=== PATIENT | male | born 1960 | race Caucasian/White ===

== ENCOUNTER → 2019-06-09 13:36 | Outpatient (CLI) | payer OTHER, SELFPAY ==
--- NOTE | 2019-06-09 | DI.ECHO.S_ITS ---
[facility]---------[facility] +---------+ : : [address] : : : : [id number] : : : : Phone: [phone] +---------+ Echocardiogram Report + + :Name: MERCED OROZCO Study Date: 06/09/2019 Height: 69 in : :[facility] Exam Location: IS Weight: 135 lb : : Gender: Male BSA: 1.7 m2 : :: 1960 Age: 58 yrs BP: 138/83 mmHg: :Reason For Study: SYNCOPE AND COLLAPSE : : Performed By: Miguelangel Gordon : :Referring: MIRELLA MAS M : + + Interpretation Summary Normal sinus rhythm. Normal LV size, wall thickness, wall motion and LV systolic function. EF is 60-65%. Moderate LA enlargement; otherwise normal chamber sizes. Aortic valve leaflets are normal; there is moderately dilated aortic root and mildly-moderately dilated ascending aorta. As a result there is mild central aortic regurgitation. Otherwise no significant valvular abnormalities. No prior study available for comparison. Procedure: A two-dimensional transthoracic echocardiogram with color flow and Doppler was performed. The study quality was technically good. There is no prior echocardiogram noted for this patient. The patient was in normal sinus rhythm during the exam. Left Ventricle: The left ventricle is normal in size. There is normal left ventricular wall thickness. There is no echo evidence for significant left ventricular outflow tract obstruction. The ejection fraction is estimated to be 60-65%. There are no focal wall motion abnormalities. Diastolic parameters suggest a relaxation abnormality of the left ventricle, consistent with probable normal filling pressures. Right Ventricle: The right ventricle is at the upper limits of normal in size. The right ventricular systolic function is normal. Atria: The left atrium is moderately dilated. Right atrial size is normal. The interatrial septum is intact with no evidence for an atrial septal defect. Mitral Valve: There is a flat closure plane of the the mitral valve leaflets. There is no mitral regurgitation noted. Aortic Valve: The aortic valve is trileaflet. The aortic valve opens well. There is mild aortic regurgitation. Tricuspid Valve: The tricuspid valve is normal in structure and function. There is trace tricuspid regurgitation. The right ventricular systolic pressure is estimated to be at least 19 mmHg based on an estimated right atrial pressure of 3 mm Hg. Pulmonic Valve: The pulmonic valve is normal in structure and function. There is trace pulmonic regurgitation. Great Vessels: The aortic root is moderately dilated. The ascending aorta is mild-moderately enlarged. The pulmonary artery is normal size. The IVC is of normal diameter and collapses greater than 50% with a sniff. This suggests a low right atrial pressure of 3 mm Hg. Pericardium/ Pleura There is no pericardial effusion. There is no pleural effusion. MMode/2D Measurements & Calculations LVIDd: 5.3 cm LVOT diam: 2.6 cm LVIDs: 3.1 cm Ao root diam: 5.0 cm FS: 42.0 % Aortic Jxn: 3.9 cm EPSS: 0.86 cm asc Aorta Diam: 4.2 cm IVSd: 0.98 cm Ao Arch Diam (Prox Trans): 3.0 cm LVPWd: 0.80 cm LV monterroso. diameter/BSA (cm/m^2): 3.0 LV sys. diameter/BSA (cm/m^2): 1.8 LA dimension: 3.5 cm RA long axis: 5.4 cm LA A2 area: 24.5 cm2 RA area: 17.3 cm2 LA A4 area: 19.8 cm2 RA vol: 47.0 ml LA length (vol): 5.2 cm RA : 26.9 ml/m2 LA vol: 79.3 ml IVC diam: 2.0 cm LA vol index: 45.3 ml/m2 RVD1 (basal): 4.3 cm RVD2 (mid): 4.5 cm Doppler Measurements & Calculations Ao V2 max: 113.3 cm/sec LVOT Max Rashel: 73.6 cm/sec Ao V2 mean: 79.7 cm/sec LV V1 max P.2 mmHg Ao max P.1 mmHg LV V1 VTI: 16.2 cm Ao mean P.7 mmHg SHAHEED(I,D): 4.2 cm2 Ao V2 VTI: 19.9 cm SHAHEED(V,D): 3.4 cm2 sev ratio: 0.82 SHAHEED indexed to BSA (cm^2/m^2): 2.4 AI P1/2t: 711.2 msec AI dec slope: 182.7 cm/sec2 MV E max rashel: 72.8 cm/sec TR max rashel: 202.1 cm/sec MV A max rashel: 80.2 cm/sec TR max P.3 mmHg MV E/A: 0.91 PA V2 max: 60.1 cm/sec Med Peak E' Rashel: 4.3 cm/sec PA V2 mean: 44.3 cm/sec E/E' med: 16.8 PA mean P.83 mmHg Lat Peak E' Rashel: 6.8 cm/sec PA pr(Accel): 29.1 mmHg E/E' lat: 10.6 PA Accel Time: 0.10 sec E/e' average: 13.7 MV dec time: 0.18 sec SV(OT): 84.2 ml Electronically signed by: Karen Baker M.D. on Reading Physician:06/09/2019 10:18 PM
[2019-06-09 14:57] LABS: Hemoglobin A1C% w Est Avg Glu 5.1 % (4.0-6.0)
[2019-06-09 15:03] LABS: Cholesterol 206 mg/dL (140-199); HDL Cholesterol 58 mg/dL (40-60); LDL Cholesterol Calculated 124 mg/dL (<100); Triglycerides 121 mg/dL (35-150)
[2019-06-09 16:42] LABS: Hep C Virus Ab w/Reflex Quant NEGATIVE s/c (NEGATIVE)
== END ==
PROVIDERS: PCP Family Medicine; Visit Provider Family Medicine
DX: Z00.00 Encounter for general adult medical examination without abnormal findings (principal); R55 Syncope and collapse; I35.1 Nonrheumatic aortic (valve) insufficiency; I77.89 Other specified disorders of arteries and arterioles
CPT/HCPCS: 36415; 80061; 83036; 86803; 93306

== ENCOUNTER → 2022-01-16 14:31 | Outpatient (CLI) | payer OTHER, SELFPAY ==
--- NOTE | 2022-01-16 14:33 | DI.ECHO.S_ITS ---
[facility]---------+ [facility] +---------+ : : [address] : : : : [id number] : : : : Phone: [phone] +---------+ Echocardiogram Report + + :Name: MERCED OROZCO Study Date: 01/16/2022 Height: 68 in : :[facility] ReadingLocation: Weight: 195 lb : : Gender: Male BSA: 2.0 m2 : :: 1960 Age: 61 yrs BP: 137/95 mmHg: :Reason For Study: AORTIC ROOT DILITATION : :Ordering Physician: CHACE, : :MIRELLA Calderón Performed By: Sandra Hatch : :Referring: MIRELLA MAS : + + Interpretation Summary The left ventricle is normal in size and wall thickness. Left ventricular systolic function appears normal without focal wall motion abnormalities. Left ventricular ejection fraction is estimated to be 55%. LVEF has not significantly changed since prior study. Diastolic parameters suggest a relaxation abnormality of the left ventricle, consistent with probable normal filling pressures. The right ventricle is normal in size and function. The left atrial size is normal. Right atrial size is normal. There is mild aortic regurgitation which has not changed since prior study. There is no other significant valvular heart disease. The aortic root is moderately dilated. The ascending aorta is mild-moderately enlarged. These two measurements have not increased since prior study. Procedure: A two-dimensional transthoracic echocardiogram with color flow and Doppler was performed. The study quality was technically adequate. Comparison is made with the echocardiogram of 06/09/2019. The patient was in sinus rhythm with heart rates between 64-73 bpm during the exam. Left Ventricle: The left ventricle is normal in size and wall thickness. Left ventricular systolic function appears normal without focal wall motion abnormalities. Left ventricular ejection fraction is estimated to be 55%. Diastolic parameters suggest a relaxation abnormality of the left ventricle, consistent with probable normal filling pressures. Right Ventricle: The right ventricle is normal in size and function. Atria: The left atrial size is normal. Right atrial size is normal. There is no Doppler evidence for an interatrial shunt. Mitral Valve: The mitral valve is normal in structure and function. There is trace mitral regurgitation. Aortic Valve: The aortic valve is trileaflet. The aortic valve opens well. There is no aortic valve stenosis. There is mild aortic regurgitation. Tricuspid Valve: The tricuspid valve is normal in structure and function. There is mild tricuspid regurgitation. Pulmonic Valve: The pulmonic valve leaflets are thin and pliable; valve motion is normal. There is a trace or physiologic amount of pulmonic regurgitation. There is no other significant valvular heart disease. Great Vessels: The aortic root is moderately dilated. The ascending aorta is mild-moderately enlarged. The IVC is of normal diameter and collapses greater than 50% with a sniff. This suggests a low right atrial pressure of 3 mm Hg. Pericardium/ Pleura There is no pericardial effusion. There is no pleural effusion. MMode/2D Measurements & Calculations LVIDd: 5.5 cm LVOT diam: 2.3 cm LVIDs: 3.6 cm Ao root diam: 4.8 cm FS: 34.7 % asc Aorta Diam: 4.2 cm IVSd: 0.84 cm Ao Arch Diam (Prox Trans): 3.1 cm LVPWd: 0.83 cm LV monterroso. diameter/BSA (cm/m^2): 2.7 LV sys. diameter/BSA (cm/m^2): 1.8 LA A2 area: 19.0 cm2 RA long axis: 5.5 cm LA A4 area: 19.8 cm2 RA area: 14.2 cm2 LA length (vol): 5.6 cm RA vol: 30.9 ml LA vol: 57.1 ml RA : 15.3 ml/m2 LA vol index: 28.3 ml/m2 IVC diam: 1.3 cm RVD1 (basal): 3.8 cm TAPSE: 2.3 cm Doppler Measurements & Calculations Ao V2 max: 109.0 cm/sec LVOT Max Rashel: 95.8 cm/sec Ao V2 mean: 77.9 cm/sec LV V1 max P.7 mmHg Ao max P.8 mmHg LV V1 VTI: 18.5 cm Ao mean P.7 mmHg SHAHEED(I,D): 3.7 cm2 Ao V2 VTI: 21.7 cm SHAHEED(V,D): 3.8 cm2 sev ratio: 0.86 SHAHEED indexed to BSA (cm^2/m^2): 1.8 AI P1/2t: 553.5 msec AI dec slope: 227.5 cm/sec2 MV E max rashel: 56.0 cm/sec PA V2 max: 82.3 cm/sec MV A max rashel: 79.1 cm/sec PA V2 mean: 52.8 cm/sec MV E/A: 0.71 PA mean P.3 mmHg Med Peak E' Rashel: 5.1 cm/sec PA pr(Accel): 27.6 mmHg E/E' med: 11.1 Lat Peak E' Rashel: 7.9 cm/sec E/E' lat: 7.1 E/e' average: 9.1 MV dec time: 0.34 sec SV(LVOT): 80.0 ml Reading Physician:04:52 PM
== END ==
PROVIDERS: PCP Family Medicine; Referring Provider Family Medicine; Visit Provider Family Medicine
DX: I77.819 Aortic ectasia, unspecified site (principal); I35.1 Nonrheumatic aortic (valve) insufficiency; I51.7 Cardiomegaly
CPT/HCPCS: 93306

== ENCOUNTER → 2022-04-03 13:35 | Outpatient (CLI) | payer OTHER, SELFPAY ==
--- NOTE | 2022-04-03 13:38 | DI.RAD.S_ITS ---
PROCEDURE: XR CHEST 2V INDICATIONS: ACUTE COUGH TECHNIQUE: 2 views of the chest were acquired. COMPARISON: None. FINDINGS: Surgical changes and devices: None. Lungs and pleura: Lungs are clear. No pleural effusions or pneumothorax. Mediastinum: Mediastinal contours are normal. Heart size is normal. Bones and chest wall: No suspicious bony abnormalities. Soft tissues appear unremarkable. Bilateral shoulder arthroplasties. IMPRESSION: No acute cardiopulmonary disease. Dictated by: Andre Coppola M.D. on 04/03/2022 at 15:30 Approved by: Andre Coppola M.D. on 04/03/2022 at 15:31
--- NOTE | 2022-04-03 13:38 | DI.RAD.S_ITS ---
PROCEDURE: XR SINUS <3V INDICATIONS: ACUTE COUGH TECHNIQUE: 3 views of the sinuses were acquired. COMPARISON: None. FINDINGS: Sinuses: The visualized sinuses demonstrate no air-fluid levels or mucosal thickening. The visualized mastoids also appear clear. Bones: No suspicious bony lesions. Slight nasal septal deviation to the left is seen. IMPRESSION: Bilateral paranasal sinuses are well aerated. No gross facial bone abnormalities. Slight nasal septal deviation to the left. Dictated by: Otto Culp M.D. on 04/03/2022 at 16:28 Approved by: Otto Culp M.D. on 04/03/2022 at 16:28
== END ==
PROVIDERS: PCP Family Medicine; Referring Provider Family Medicine; Visit Provider Family Medicine
DX: R05.1 Acute cough (principal)
CPT/HCPCS: 70210; 71046

== ENCOUNTER → 2024-12-02 12:29 | Outpatient (CLI) | payer BC, SELFPAY ==
--- NOTE | 2024-12-02 12:35 | DI.RAD.S_ITS ---
PROCEDURE: XR LUMBAR SPINE 2-3V INDICATIONS: BACK PAIN TECHNIQUE: 3 views of the lumbar spine were acquired. COMPARISON: None. FINDINGS: Lumbar spine curvature and alignment: Grade 1 L4-5 spondylolisthesis features 5 mm of L4 anterior subluxation. This is due to degenerative facet disease. Very slight rightward curve lower thoracic and upper lumbar spine noted. Bones: There are no osseous abnormalities. Disc spaces: Severe L2-3 and moderate L3-4 degenerative disc disease noted. Moderate L3-4 L4-5 and L5-S1 degenerative facet disease Soft tissues: No soft tissue swelling, calcification or mass. IMPRESSION: Degeneration Dictated by: Mic Peacock M.D. on 12/03/2024 at 12:35 Approved by: Mic Peacock M.D. on 12/03/2024 at 12:36
[2024-12-02 13:50] LABS: Cholesterol 255 mg/dL (140-199); HDL Cholesterol 93 mg/dL (40-60); LDL Cholesterol Calculated 146 mg/dL (<100); Triglycerides 81 mg/dL (35-150)
== END ==
PROVIDERS: PCP Family Medicine; Referring Provider Family Medicine; Visit Provider Family Medicine
DX: Z00.00 Encounter for general adult medical examination without abnormal findings (principal); M51.369 Other intervertebral disc degeneration, lumbar region without mention of lumbar back pain or lower extremity pain; M47.816 Spondylosis without myelopathy or radiculopathy, lumbar region; M47.817 Spondylosis without myelopathy or radiculopathy, lumbosacral region; M54.50 Low back pain, unspecified
CPT/HCPCS: 36415; 72100; 80061; 83036